=== PATIENT | female | born 1950 | race African-American/Black ===

== ENCOUNTER 2016-12-11 20:07 | Emergency (ER) | payer OTHER ==
[~2016-12-11] VITALS: Ht 165.1 cm; Wt 83.0 kg
[~2016-12-11 20:07] MED LIST: ESTRADIOL 1 MG T1 M1 PO; GLUCOPHAGE XR500 MG PO; HYDROCHLOROTHIA25 M2 PO; LANTUS100 UNIT/M SUBQ; LEVOTHYROXIN0.075 MG PO; PRINIVIL20 MG PO; TOPROL XL100 MG PO
[2016-12-11 20:43] LABS: URINE BILIRUBIN NEGATIVE (Negative); URINE BLOOD NEGATIVE (Negative); URINE COLOR YELLOW; URINE GLUCOSE-RANDOM* NEGATIVE (Negative); URINE KETONES TRACE (Negative); URINE LEUKOCYTES-REFLEX 3+ (Negative); URINE PROTEIN (DIPSTICK) NEGATIVE (Negative); URINE SPECIFIC GRAVITY 1.015 (1.003-1.035)
[2016-12-11 21:01] LABS: HEMATOCRIT 38.4 % (37.0-47.0); HEMOGLOBIN 12.7 gm/dL (12.0-15.0); MCH 26.5 pg (26.0-34.0); MCHC 33.1 g/dL (28.0-37.0); PLATELET COUNT 285 thou/uL (150-400); RDW 13.7 % (10.5-14.5); WBC 13.4 thou/uL (4.0-11.0)
[2016-12-11 21:02] LABS: CASTS None Seen /LPF (None Seen); CRYSTALS None Seen /LPF (None Seen); SQUAMOUS 4-10 Moderate /LPF (0-3); URINE RBC None Seen /HPF (0-2); URINE WBC-REFLEX 6-15 Few /HPF (0-5)
[2016-12-11 21:04] LABS: MANUAL DIFF YES
[2016-12-11 21:17] LABS: CREATININE 1.3 mg/dL (0.6-1.3)
[2016-12-11 21:20] LABS: ALBUMIN 3.4 g/dL (3.4-5.0); TOTAL PROTEIN 7.9 g/dL (6.4-8.2)
[2016-12-11 21:21] LABS: ABSOLUTE NEUTROPHILS 11.8 thou/uL (1.4-8.2); ANISOCYTOSIS 1+; TOTAL CELL COUNT 100
[2016-12-11 22:59] VITALS: BP 133/56
[2016-12-11] MEDS ORDERED: ONDANSETRON HCL4 M2 PO (23:05)
[2016-12-11] MEDS ORDERED: MACROBID 100 M100 M1 PO (23:24)
== END 2016-12-11 23:31 | disposition home or self-care (01) ==
LOC: ER 20:07
PROVIDERS: Physician Assistant
DX: N39.0 Urinary tract infection, site not specified (principal); E11.9 Type 2 diabetes mellitus without complications; I10 Essential (primary) hypertension; Z90.89 Acquired absence of other organs